=== PATIENT | female | born 1965 | race Two or more races ===

== ENCOUNTER 2017-10-08 10:58 | Emergency (ER) | payer SELFPAY ==
[2017-10-08 11:13] VITALS: BP 132/77; BMI 34.0
[2017-10-08 11:40] LABS: BASOPHILS % (AUTO) 0.5 % (0.2-1.0); EOSINOPHILS # (AUTO) 0.1 x10^3/uL (0.0-0.2); EOSINOPHILS % (AUTO) 0.9 % (0.9-2.9); HEMOGLOBIN 13.4 g/dL (12.0-16.0); LYMPHOCYTES # (AUTO) 2.6 X10^3/uL (1.3-2.9); LYMPHOCYTES % (AUTO) 32.5 % (21.0-51.0); MEAN CORPUSCULAR HEMOGLOBIN 28.5 pg (27.0-34.0); MEAN CORPUSCULAR HGB CONC 34.4 g/dL (33.0-35.0); MEAN PLATELET VOLUME 8.5 fL (7.4-11.0); MONOCYTES # (AUTO) 1.4 x10^3/uL (0.3-0.8); MONOCYTES % (AUTO) 17.1 % (0.0-13.0); NEUTROPHILS # (AUTO) 3.9 x10^3/uL (2.2-4.8); PLATELET COUNT 225 X10^3/uL (150.0-450.0); RED BLOOD COUNT 4.71 X10^6/uL (3.5-5.4); RED CELL DISTRIBUTION WIDTH 13.5 % (11.6-16.5)
[2017-10-08 11:46] LABS: BLOOD UREA NITROGEN 10 mg/dL (7-18); CALCIUM 8.5 mg/dL (8.5-10.1); CARBON DIOXIDE 22.6 mmol/L (21-32); CHLORIDE 104 mmol/L (98-107); CREATININE 0.63 mg/dL (0.55-1.02); SODIUM 137 mmol/L (136-145); eGFR BLACK RACES > 60 (>60); eGFR NON BLACK RACES > 60 (>60)
--- NOTE | 2017-10-08 12:03 | DR.GENAD ---
HPI - PCP Primary Care Physician: NONE - HPI Comment HPI Comment: The pt is a 52 y/o HF who presents to the [facility] ER c/o subjective fevers, cough, and congestion for the past 2 weeks. The pt does not speak any French and is accompained by her daughter who is serving as her interpretter. Pt also c/o right foot pain and swelling which has been a problem for "2 months " but denies any injury to the involved area. - Complaint/Symptoms Chief Complaint Doctors Comments: Cough and congestion for 2 weeks. Right foot pain for 2 months. Chief Complaint:: "FLU LIKE SYMPTOMS FOR A WEEK NOW AND PAIN IN RIGHT FOOT FOR TWO MONTHS WITH SWELLING" - Source History Provided: Patient - Mode of Arrival Mode of Arrival: Ambulatory - Timing Onset of Chief Complaint: 10/01/17 Came on: Gradually - Duration Duration: Constant How lon Duration: Weeks (Respiratory sx's have been present for 2 weeks. Right foot pain has been present for approximately 2 months.) PMH - PMH Past Medical History: No Past Surgical History: No - Family History History of Family Medical Conditions: Yes Family Medical History: Cancer - Social History Does patient currently use any type of tobacco product: No Have you used tobacco products in the last 12 months: No Type of Tobacco Use: None Does any household member use tobacco: No Alcohol Use: None Do you use any recreational Drugs:: No Lives With: Family Lives Where: Home - infectious screening In the last 2 months have you had wt loss of >10#?: NO Have you had fever, night sweats or hemotysis?: No Have you traveled outside the country in the last 6 months?: No Isolation: Standard ROS - Review of Systems Constitutional: See HPI Eyes: No Symptoms Reported ENTM: No Symptoms Reported Respiratoy: See HPI Gastrointestinal/Abdominal: No Symptoms Reported Genitourinary: No Symptoms Reported Neurological: No Symptoms Reported Musculoskeletal: See HPI Integumentary: No Symptoms Reported Hematologic/Lymphatic: No Symptoms Reported Endocrine: No Symptoms Reported Psychiatric: No Symptoms Reported PE - Vital Signs Vitals: Temperature 98.7 F Pulse Rate 78 Respiratory Rate 18 Blood Pressure 132/77 O2 Sat by Pulse Oximetry 96 - General Limitations: No Limitations General Appearance: Alert - Head Head Exam: Normal Inspection - Eyes Eye exam: Normal Appearance - ENT ENT Exam: Normal Exam Nose Exam: Normal Nose Exam Mouth Exam: Normal Inspection Throat Exam: Normal Inspection - Neck Neck Exam: Normal Inspection - Chest Chest Inspection: Normal Inspection - Respiratory Respiratory Exam: Bilateral Rhonchi (mild) - Cardiovascular Cardiovascular Exam: Regular Rate - Abdominal Exam Abdominal Exam: Normal Inspection - Extremities Extremities Exam: Tenderness (Moderate soft tissue swelling involving the dorsal aspect of the foot with tenderness to palpation in the involved area overlying the 2nd MTP joint) - Back Back Exam: Normal Inspection - Neurologic Neurological Exam: Alert - Psychiatric Psychiatric Exam: Normal Affect - Skin Skin Exam: Warm, Dry, Intact Course - Treatment Treatment: NS X one liter. CXR. BMP, CMP. Uric acid level. CRP. Flu swab. Solumedrol 125mg IV X one dose. Albuterol JN tx X one. Toradol 30mg IV X one - Reevaluation 1st: Improved - Education/Counseling Education/Counseling: Patient, Family (Daughter/interpretter) Educated On: Treatment, Diagnosis, Prognosis ROR - Labs Reviewed Result Diagrams: 10/08/17 11:30 10/08/17 11:30 Laboratory: WBC 8.0 X10^3/uL (3.6-10.0) 10/08/17 11:30 RBC 4.71 X10^6/uL (3.5-5.4) 10/08/17 11:30 Hgb 13.4 g/dL (12.0-16.0) 10/08/17 11:30 Hct 39.0 % (36.0-47.0) 10/08/17 11:30 MCV 83.0 fL (80.0-100.0) 10/08/17 11:30 MCH 28.5 pg (27.0-34.0) 10/08/17 11:30 MCHC 34.4 g/dL (33.0-35.0) 10/08/17 11:30 RDW 13.5 % (11.6-16.5) 10/08/17 11:30 Plt Count 225 X10^3/uL (150.0-450.0) 10/08/17 11:30 MPV 8.5 fL (7.4-11.0) 10/08/17 11:30 Neut % 49.0 % (42.0-75.0) 10/08/17 11:30 Lymph % 32.5 % (21.0-51.0) 10/08/17 11:30 Nelson % 17.1 % (0.0-13.0) H 10/08/17 11:30 Eos % 0.9 % (0.9-2.9) 10/08/17 11:30 Baso % 0.5 % (0.2-1.0) 10/08/17 11:30 Neut # 3.9 x10^3/uL (2.2-4.8) 10/08/17 11:30 Lymph # 2.6 X10^3/uL (1.3-2.9) 10/08/17 11:30 Nelson # 1.4 x10^3/uL (0.3-0.8) H 10/08/17 11:30 Eos # 0.1 x10^3/uL (0.0-0.2) 10/08/17 11:30 Baso # 0.0 X10^3/uL (0.0-0.1) 10/08/17 11:30 Absolute Nucleated RBC 0.0 /100WBC 10/08/17 11:30 Sodium 137 mmol/L (136-145) 10/08/17 11:30 Corrected Sodium TNP 10/08/17 11:30 Potassium 3.6 mmol/L (3.5-5.1) 10/08/17 11:30 Chloride 104 mmol/L (98-107) 10/08/17 11:30 Carbon Dioxide 22.6 mmol/L (21-32) 10/08/17 11:30 BUN 10 mg/dL (7-18) 10/08/17 11:30 Creatinine 0.63 mg/dL (0.55-1.02) 10/08/17 11:30 Est GFR (MDRD) Af Amer > 60 (>60) 10/08/17 11:30 Est GFR (MDRD) Non-Af > 60 (>60) 10/08/17 11:30 Glucose 100 mg/dL (65-99) H 10/08/17 11:30 Uric Acid 3.3 mg/dL (2.6-6.0) 10/08/17 11:30 Calcium 8.5 mg/dL (8.5-10.1) 10/08/17 11:30 C-Reactive Protein 61.50 mg/L (0-3.0) H 10/08/17 11:30 Influenza Type A (PCR) Positive (NEGATIVE) A 10/08/17 11:11 Influenza Type B (PCR) Negative (NEGATIVE) 10/08/17 11:11 - Diagnosis Discharge Problem: Influenza A Freiberg's infraction Qualifiers: Laterality: right Qualified Code(s): 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 Levaquin 250mg po q day X 7 days 2. Tamiflu 75mg po BID X 7 days 3. Mobic 15mg po q day 4. Instruct pt to wear shoes with support - ie, no flip-flops.
[2017-10-08] MEDS ORDERED: TORADOL 30 MG VIAL ONE (12:14)
[2017-10-08] MEDS ORDERED: TORADOL 30 MG VIAL IVP ONE (12:15)
[2017-10-08] MEDS ORDERED: ROCEPHIN VIAL 1 GM 1 GM in NS 50 ML IV + SPIKE MINIBAG* 50 ML IV ONE (12:15)
[2017-10-08] MEDS ORDERED: ROCEPHIN VIAL 1 GM ONE (12:15)
[2017-10-08] MEDS ORDERED: ACCUNEB 1.25 MG NEBULE NEB ONE (12:15)
[2017-10-08 12:17] LABS: C-REACTIVE PROTEIN 61.5 mg/L (0-3.0); URIC ACID 3.3 mg/dL (2.6-6.0)
--- NOTE | 2017-10-08 12:32 | RAD ---
HISTORY: Chest pain Study: Single-view chest. Comparison: None. Findings: The trachea is midline. The cardiac silhouette is enlarged without evidence for CHF. The lungs are clear without focal infiltrate or effusion. The bony thorax is unremarkable. IMPRESSION: Cardiomegaly without acute cardiopulmonary abnormalities seen. Reported By:
--- NOTE | 2017-10-08 12:33 | RAD ---
HISTORY: Right foot pain and swelling x2 months. Study: Three views of the right foot. Comparison: None. Findings: Mild osteoarthritis of the 1st MTP joint. Flattening of the 2nd metatarsal head likely representing F reiberg's infraction. No acute cortical disruption or dislocation can be identified. No significant soft tissue swelling or injury can be seen. IMPRESSION: No acute osseous abnormality. Reported By:
[2017-10-08] MEDS ORDERED: PROVENTIL NEB TX 0.083% 2.5MG/ 3ML ONE (12:34)
[2017-10-08] MEDS ORDERED: PROVENTIL NEB TX 0.083% 2.5MG/ 3ML NEB ONE (12:34)
== END 2017-10-08 14:17 | disposition home or self-care (01) ==
LOC: ER 11:13
DX: J11.1 Influenza due to unidentified influenza virus with other respiratory manifestations (principal); M92.71 Juvenile osteochondrosis of metatarsus, right foot; I51.7 Cardiomegaly
CPT/HCPCS: 36415; 71010; 73630; 80048; 84550; 85025; 86140; 87502; 94640; 96365; 96374; 96375; 99282; 99283; A4222; J0696; J1885; J7613